=== PATIENT | female | born 1990 | race Caucasian/White ===

== ENCOUNTER 2017-11-16 15:16 | Emergency (ER) | payer MEDICAID ==
[~2017-11-16] VITALS: Ht 162.6 cm; Wt 84.4 kg
[2017-11-16 15:24] VITALS: Ht 162.6 cm; Wt 84.4 kg
[2017-11-16 15:50] VITALS: BP 146/83
== END 2017-11-16 15:50 | disposition home or self-care (01) ==
LOC: ED 15:16
DX: J03.90 Acute tonsillitis, unspecified (principal)
CPT/HCPCS: 87491; 87591

== ENCOUNTER → 2018-10-28 | Outpatient (CLI) | payer MEDICAID ==
[2018-10-28 17:33] LABS: ALBUMIN 3.7 g/dL (3.4-5.0); ALKALINE PHOSPHATASE 61 U/L (46-116); ALT/SGPT 22 U/L (14-59); AST/SGOT 13 U/L (15-37); BILIRUBIN TOTAL 0.3 mg/dL (0.20-1.00); CALCIUM 8.6 mg/dL (8.5-10.1); CARBON DIOXIDE 29.6 mmol/L (21-32); CHLORIDE SERUM 105 mmol/L (98-107); CREATININE SERUM 0.8 mg/dL (0.6-1.0); GFR1 > 60 mL/min; GLUCOSE SERUM 87 mg/dL (74-106); POTASSIUM SERUM 3.7 mmol/L (3.5-5.1); SODIUM SERUM 141 mmol/L (136-145); TOTAL PROTEIN, SERUM 7.6 g/dL (6.4-8.2)
[2018-10-28 17:45] LABS: T3 TOTAL 1.39 ng/mL
[2018-10-28 18:00] LABS: FREE T4 0.92 ng/dL (0.76-1.46); T4(THYROXINE) 8.8 ug/dL (4.7-13.3)
[2018-10-29 09:16] LABS: CHOLESTEROL/HDL RATIO 5.8
== END | disposition home or self-care (01) ==
LOC: LB 16:38
PROVIDERS: Family Medicine
DX: Z00.00 Encounter for general adult medical examination without abnormal findings (principal); E66.9 Obesity, unspecified; Z11.3 Encounter for screening for infections with a predominantly sexual mode of transmission
CPT/HCPCS: 84439; 86694; 87491; 87591